=== PATIENT | female | born 1980 | race Caucasian/White ===

== ENCOUNTER 2018-09-13 16:54 | Inpatient (IN) | payer OTHER ==
[2018-09-13 17:26] VITALS: BMI 31.1
--- NOTE | 2018-09-13 20:35 | HP ---
Admission [facility] Chief Complaint: Patient with alcohol dependence is seeking admission to Rehab Allergies/Adverse Reactions: Allergies Allergy/AdvReac Type Severity Reaction Status Date / Time Fish Containing Products Allergy Hives Verified 11/27/11 13:30 [Fish Product Derivatives] peanut [Peanut] Allergy Hives Verified 11/27/11 13:30 Shellfish Allergy NOT STATED Verified 11/27/11 19:17 seafood Allergy Hives Uncoded 11/27/11 13:30 History of Present Illness: 38 years old female with a long history of alcohol dependence is seeking admission to Rehab. Patient has been in previous Rehab at [facility]. she has history of asthma, hypertension, anxiety and depression. She denies suicide attempt and suicidal ideation at this time. Patient is on Methadone 60mg tablet oral daily with [facility]. Last day medicated is today, 09/13/2018. Exam Limitations: No Limitations - Ebola screening Have you traveled outside of the country in the last 21 days: No (N) Have you had contact with anyone from an Ebola affected area: No Have you been sick,other than usual withdrawal symptoms: No Do you have a fever: No - Review of Systems Constitutional: No Symptoms Reported EENT: reports: No Symptoms Reported Respiratory: reports: No Symptoms reported Cardiac: reports: No Symptoms Reported GI: reports: No Symptoms Reported : reports: No Symptoms Reported Musculoskeletal: reports: No Symptoms Reported Integumentary: reports: No Symptoms Reported Neuro: reports: No Symptoms reported Endocrine: reports: No Symptoms Reported Hematology: reports: No Symptoms Reported Psychiatric: reports: No Sypmtoms Reported, Orientated x3 Other Systems: Reviewed and Negative Patient History - Patient Medical History Hx Anemia: No Hx Asthma: Yes (Albuterol MDI) Hx Chronic Obstructive Pulmonary Disease (COPD): No Hx Cancer: No Hx Cardiac Disorders: No Hx Congestive Heart Failure: No Hx Hypertension: Yes (Not on medication) Hx Hypercholesterolemia: No Hx Pacemaker: No HX Cerebrovascular Accident: No Hx Seizures: No Hx Dementia: No Hx Diabetes: No Hx Gastrointestinal Disorders: No Hx Liver Disease: No Hx Genitourinary Disorders: No Hx Sexually Transmitted Disorders: No Hx Renal Disease (ESRD): No Hx Thyroid Disease: No Hx Human Immunodeficiency Virus (HIV): No (Negative) Hx Hepatitis C: No Hx Depression: Yes (Trazodone) Hx Suicide Attempt: No (Denies suicidal ideation at this time) Hx Bipolar Disorder: Yes Hx Schizophrenia: No Other Medical History: Anxiety - Not on medication - Patient Surgical History Past Surgical History: Yes Hx Neurologic Surgery: No Hx Cataract Extraction: No Hx Cardiac Surgery: No Hx Lung Surgery: No Hx Breast Surgery: No Hx Breast Biopsy: No Hx Abdominal Surgery: No Hx Appendectomy: No Hx Cholecystectomy: No Hx Genitourinary Surgery: No Hx Section: Yes (C- SECTION 2010, 2011) Hx Orthopedic Surgery: No Hx Hysterectomy: No Anesthesia Reaction: No - PPD History Previous Implant?: Yes Implanted On Prior R Admission?: No PPD to be Administered?: Yes - Reproductive History Patient is a Female of Child Bearing Age (11 -55 yrs old): Yes Last Menstrual Period: 08/27/18 Patient : No - Smoking Cessation Smoking history: Current every day smoker Have you smoked in the past 12 months: Yes Aproximately how many cigarettes per day: 10 Hx Chewing Tobacco Use: No Initiated information on smoking cessation: Yes 'Breaking Loose' booklet given: 09/13/18 - Substance & Tx. History Hx Alcohol Use: Yes Hx Substance Use: Yes Substance Use Type: Alcohol Hx Substance Use Treatment: Yes Family Disease History - Family Disease History Family Disease History: Diabetes: Father, Respiratory: Mother (Asthma) Admission Physical Exam [facility] - Vital Signs Vital Signs: Vital Signs - 24 hr 09/13/18 17:24 Temperature 98.8 F Pulse Rate 89 Respiratory 18 Rate Blood Pressure 145/95 - Physical General Appearance: Yes: Within Normal Limits HEENTM: Yes: EOMI, Normal ENT Inspection, Normocephalic, Normal Voice, KIKI Respiratory: Yes: Lungs Clear, Normal Breath Sounds, No Respiratory Distress Neck: Yes: Supple Breast: Yes: Breast Exam Deferred Cardiology: Yes: Regular Rhythm, Regular Rate Abdominal: Yes: Normal Bowel Sounds Genitourinary: Yes: Within Normal Limits Back: Yes: Normal Inspection Musculoskeletal: Yes: Within Normal Limits Extremities: Yes: Within Normal Limits Neurological: Yes: Within Normal Limits Integumentary: Yes: Warm Lymphatic: Yes: Within Normal Limits - Diagnostic (1) Hypertension Current Visit: Yes Status: Chronic (2) Asthma Current Visit: Yes Status: Chronic (3) Depression Current Visit: Yes Status: Chronic Qualifiers: Major depression episode severity: unspecified (4) Anxiety Current Visit: Yes Status: Chronic (5) Alcohol dependence Current Visit: Yes Status: Chronic (6) Nicotine dependence Current Visit: Yes Status: Chronic Qualifiers: Nicotine product type: cigarettes Substance use status: uncomplicated Qualified Code(s): F17.210 - Nicotine dependence, cigarettes, uncomplicated Cleared for Admission [facility] - Detox or Rehab [facility] Level of Care: Observation Bed Claeared for Rehab Admission: Yes [facility] Breath Alcohol Content Breath Alcohol Content: 0 Urine Pregancy Test - Result Urine Test Results: Negative- NO Line Present Urine Drug Screen - Results Drug Screen Negative: No Urine Drug Screen Results: OPI-Opiates, BZO-Benzodiazepines, MTD-Methadone Inpatient Rehab Admission - Initial Determination Are CD services needed?: Yes Free of communicable disease: Yes Not in need of hospitalization: Yes - Rehab Admission Criteria Previous failed treatment: Yes Poor recovery environment: Yes Comorbidities: Yes Lacks judgement: No Patient is meeting Inpatient Rehab admission criteria:: Yes
[2018-09-13] MEDS ORDERED: guaiFENesin/D-METHORPHAN HB 10 ML UNIT-DOSE CUPS PO PRN (21:49)
[2018-09-13] MEDS ORDERED: P-EPHED 60MG/TRIPROLIDI 2.5MG TABLET PO PRN (21:49)
[2018-09-13] MEDS ORDERED: MAGNESIUM CITRATE 300 ML BOTTLE PO PRN (21:49)
[2018-09-13] MEDS ORDERED: NICOTINE POLACRILEX 2 MG GUM BUC PRN (21:49)
[2018-09-13] MEDS ORDERED: LOPERAMIDE HCL 2 MG CAPSULE PO PRN (21:49)
[2018-09-13] MEDS ORDERED: MENTHOL/PHENOL 1 EACH UD MM PRN (21:49)
[2018-09-13] MEDS: THIAMINE HCL 100 MG TABLET (FP) PO SCH (23:13)
[2018-09-13] MEDS: MAGNESIUM HYDROX 2400MG/30ML ORAL SUSPENSION 30 ML CUP PO PRN (23:18)
[2018-09-14 01:10] LABS: URINE APPEARANCE CLEAR; URINE BILIRUBIN NEGATIVE (<2.0 mg/dL); URINE COLOR YELLOW; URINE GLUCOSE (UA) NEGATIVE (NEGATIVE); URINE KETONE NEGATIVE (NEGATIVE); URINE LEUK ESTERASE TRACE (NEGATIVE); URINE NITRITE NEGATIVE (NEGATIVE); URINE PROTEIN NEGATIVE (NEGATIVE); URINE UROBILINOGEN NEGATIVE mg/dL (0.2-1.0)
[2018-09-14 02:32] LABS: EPI CELLS MODERATE /HPF (FEW); URINE MUCUS RARE
[2018-09-14] MEDS ORDERED: METHADONE HCL 10 MG TABLET PO SCH (08:00)
[2018-09-14] MEDS ORDERED: METHADONE HCL 10 MG TABLET ONE (08:48)
[2018-09-14] MEDS ORDERED: METHADONE HCL 40 MG DISPERSABLE TABLET ONE (08:49)
[2018-09-14] MEDS: METHADONE 40 MG, METHADONE 20 MG PO SCH (08:54)
[2018-09-14] MEDS: NICOTINE 14 MG/24 HOURS TOPICAL PATCH TD SCH (09:01)
[2018-09-14] MEDS: PRENATAL VITAMINS W/ FOLIC ACID TABLET (FP) PO SCH (09:01)
[2018-09-14 10:32] LABS: HEMATOCRIT 40.8 % (32.4-45.2); HEMOGLOBIN 12.9 GM/dL (10.7-15.3); MCH 28.5 pg (25.7-33.7); MCHC 31.7 g/dl (32.0-36.0); MEAN CELL VOLUME 89.7 fl (80-96); MEAN PLT VOLUME 9.8 fl (7.5-11.1); PLATELET COUNT 199 K/MM3 (134-434); RBC 4.54 M/mm3 (3.60-5.2); RDW 15.9 % (11.6-15.6); WHITE BLOOD COUNT 8.1 K/mm3 (4.0-10.0)
[2018-09-14 10:55] LABS: ALBUMIN 3.2 g/dl (3.4-5.0); ALK PHOS 82 U/L (45-117); ANION GAP 5 MMOL/L (8-16); BILIRUBIN,TOTAL 0.2 mg/dL (0.2-1); BLOOD UREA NITROGEN 16 mg/dL (7-18); CALCIUM 8.9 mg/dL (8.5-10.1); CHLORIDE 109 mmol/L (98-107); CO2 26 mmol/L (21-32); CREATININE 0.7 mg/dL (0.55-1.3); GLUCOSE,RANDOM 71 mg/dL (74-106); POTASSIUM 4.4 mmol/L (3.5-5.1); SGOT/AST 26 U/L (15-37); SGPT/ALT 21 U/L (13-61); SODIUM 140 mmol/L (136-145); TOT PROT 6.6 g/dl (6.4-8.2)
--- NOTE | 2018-09-14 11:48 | EKG ---
Test Reason : Blood Pressure : / mmHG Vent. Rate : 074 BPM Atrial Rate : 074 BPM P-R Int : 164 ms QRS Dur : 088 ms QT Int : 406 ms P-R-T Axes : 065 062 055 degrees QTc Int : 450 ms NORMAL SINUS RHYTHM NORMAL ECG NO PREVIOUS ECGS AVAILABLE Confirmed by SALVADOR KIRAN MD ([id number]) on 09/14/2018 11:47:35 AM Referred By: Confirmed By:SALVADOR KIRAN MD
[2018-09-14] MEDS: THIAMINE HCL 100 MG TABLET (FP) PO SCH (21:21)
[2018-09-14] MEDS: MELATONIN 5 MG TABLETS PO PRN (21:22)
[2018-09-15] MEDS ORDERED: METHADONE HCL 10 MG TABLET ONE (06:12)
[2018-09-15] MEDS ORDERED: METHADONE HCL 40 MG DISPERSABLE TABLET ONE (06:13)
[2018-09-15] MEDS: METHADONE 40 MG, METHADONE 20 MG PO SCH (06:13)
[2018-09-15] MEDS: IBUPROFEN 400 MG TABLET (FP) PO PRN ×2 (06:15→21:22)
[2018-09-15] MEDS: NICOTINE 14 MG/24 HOURS TOPICAL PATCH TD SCH (09:29)
[2018-09-15] MEDS: ACETAMINOPHEN 325 MG TABLET (FP) PO PRN (09:29)
[2018-09-15] MEDS: PRENATAL VITAMINS W/ FOLIC ACID TABLET (FP) PO SCH (09:29)
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
[2018-09-15] MEDS: hydrOXYzine PAMOATE 50 MG CAPSULE (FP) PO PRN ×2 (10:28→21:19)
[2018-09-15] MEDS ORDERED: cloNIDine HCL 0.1 MG TABLET PO ONE (10:57)
--- NOTE | 2018-09-15 11:05 | PN ---
[facility] Progress Note Note: PT C/O DECREASED APPETITE, HX ANEMIA AND ON FEOSOL 325 MG PO TID AND HAS HEAVY PERIODS. PT WANTS IT ONCE A DAY WHILE IN REHAB. ALSO STATES SHE IS ON COLACE AND SENNA AND REQUESTING COLACE TO BE REORDERED. PT ALSO STATES ELEVATE BP FOR PAST MONTH WHENEVER SHE WENT TO HER CLINIC AND STATES HER PMD DID NOT GIVE HER ANY MEDICATION. Vital Signs - 24 hr 09/14/18 09/15/18 09/15/18 14:41 03:30 07:21 Temperature 97.9 F Pulse Rate 71 80 Respiratory 18 18 Rate Blood Pressure 131/83 144/97 09/15/18 09/15/18 09:36 09:37 Temperature Pulse Rate 80 83 Respiratory Rate Blood Pressure 146/84 155/82 Laboratory Tests 09/14/18 09/14/18 09/14/18 00:05 07:00 07:00 WBC 8.1 RBC 4.54 Hgb 12.9 Hct 40.8 MCV 89.7 MCH 28.5 MCHC 31.7 L RDW 15.9 H Plt Count 199 MPV 9.8 Sodium 140 Potassium 4.4 Chloride 109 H Carbon Dioxide 26 Anion Gap 5 L BUN 16 Creatinine 0.7 Creat Clearance w eGFR > 60 Random Glucose 71 L Calcium 8.9 Total Bilirubin 0.2 AST 26 ALT 21 Alkaline Phosphatase 82 Total Protein 6.6 Albumin 3.2 L Urine Color Yellow Urine Appearance Clear Urine pH 5.0 Ur Specific [place] 1.024 Urine Protein Negative Urine Glucose (UA) Negative Urine Ketones Negative Urine Blood Negative Urine Nitrite Negative Urine Bilirubin Negative Urine Urobilinogen Negative Ur Leukocyte Esterase Trace Urine WBC (Auto) 10 Urine RBC (Auto) 2 Ur Epithelial Cells Moderate Urine Mucus Rare RPR Titer HIV 1&2 Antibody Screen HIV P24 Antigen 09/14/18 09/14/18 07:00 07:00 WBC RBC Hgb Hct MCV MCH MCHC RDW Plt Count MPV Sodium Potassium Chloride Carbon Dioxide Anion Gap BUN Creatinine Creat Clearance w eGFR Random Glucose Calcium Total Bilirubin AST ALT Alkaline Phosphatase Total Protein Albumin Urine Color Urine Appearance Urine pH Ur Specific [place] Urine Protein Urine Glucose (UA) Urine Ketones Urine Blood Urine Nitrite Urine Bilirubin Urine Urobilinogen Ur Leukocyte Esterase Urine WBC (Auto) Urine RBC (Auto) Ur Epithelial Cells Urine Mucus RPR Titer Nonreactive HIV 1&2 Antibody Screen Negative HIV P24 Antigen Negative LABS NOTED. HGB/HCT WNL PT INFORMED BUT STILL WANTS HER FEOSOL BUT ONCE DAILY. PT WAS SEEN BY THE DIETITIAN TODAY CLONIDINE 0.1 MG PO BID FOLLOW UP WITH PMD AFTER REHAB
[2018-09-15] MEDS: FERROUS SO4 325 MG TABLET (FP) PO SCH (12:00)
[2018-09-15] MEDS: HYDROCORTISONE 1% TOPICAL CREAM 30 GM TUBE TP SCH ×2 (12:00→21:24)
[2018-09-15] MEDS: THIAMINE HCL 100 MG TABLET (FP) PO SCH (21:19)
[2018-09-15] MEDS: MELATONIN 5 MG TABLETS PO PRN (21:19)
[2018-09-15] MEDS: DOCUSATE SODIUM 100 MG CAPSULE (FP) PO SCH (21:22)
[2018-09-15] MEDS: MIRTAZAPINE 30 MG TABLET (FP) PO SCH (21:23)
[2018-09-15] MEDS: traZODone HCL 50 MG TABLET (FP) PO SCH (21:23)
[2018-09-15] MEDS: QUEtiapine FUMARATE 100 MG TABLET (FP) PO SCH (21:23)
[2018-09-15] MEDS: cloNIDine HCL 0.1 MG TABLET PO SCH (21:23)
[2018-09-16] MEDS ORDERED: METHADONE HCL 10 MG TABLET ONE (02:43)
[2018-09-16] MEDS ORDERED: METHADONE HCL 40 MG DISPERSABLE TABLET ONE (02:44)
[2018-09-16] MEDS: METHADONE 40 MG, METHADONE 20 MG PO SCH (06:36)
[2018-09-16] MEDS: IBUPROFEN 400 MG TABLET (FP) PO PRN ×2 (06:37→18:34)
[2018-09-16] MEDS: cloNIDine HCL 0.1 MG TABLET PO SCH ×2 (10:04→21:13)
[2018-09-16] MEDS: PRENATAL VITAMINS W/ FOLIC ACID TABLET (FP) PO SCH (10:05)
[2018-09-16] MEDS: HYDROCORTISONE 1% TOPICAL CREAM 30 GM TUBE TP SCH ×2 (10:05→21:14)
[2018-09-16] MEDS: NICOTINE 14 MG/24 HOURS TOPICAL PATCH TD SCH (10:05)
[2018-09-16] MEDS: FERROUS SO4 325 MG TABLET (FP) PO SCH (10:05)
[2018-09-16] MEDS: ACETAMINOPHEN 325 MG TABLET (FP) PO PRN (12:09)
[2018-09-16] MEDS: hydrOXYzine PAMOATE 50 MG CAPSULE (FP) PO PRN ×2 (12:11→18:36)
[2018-09-16] MEDS ORDERED: PT OWN MED DRAWER 7, Y5N ONE (20:35)
[2018-09-16] MEDS: DOCUSATE SODIUM 100 MG CAPSULE (FP) PO SCH (21:13)
[2018-09-16] MEDS: traZODone HCL 50 MG TABLET (FP) PO SCH (21:13)
[2018-09-16] MEDS: MIRTAZAPINE 30 MG TABLET (FP) PO SCH (21:13)
[2018-09-16] MEDS: QUEtiapine FUMARATE 100 MG TABLET (FP) PO SCH (21:13)
[2018-09-16] MEDS: THIAMINE HCL 100 MG TABLET (FP) PO SCH (21:15)
[2018-09-17] MEDS ORDERED: METHADONE HCL 40 MG DISPERSABLE TABLET ONE (03:08)
[2018-09-17] MEDS ORDERED: METHADONE HCL 10 MG TABLET ONE (03:08)
[2018-09-17] MEDS: METHADONE 40 MG, METHADONE 20 MG PO SCH (06:50)
[2018-09-17] MEDS: IBUPROFEN 400 MG TABLET (FP) PO PRN (06:51)
[2018-09-17] MEDS: cloNIDine HCL 0.1 MG TABLET PO SCH ×2 (10:20→21:40)
[2018-09-17] MEDS: NICOTINE 14 MG/24 HOURS TOPICAL PATCH TD SCH (10:20)
[2018-09-17] MEDS: PRENATAL VITAMINS W/ FOLIC ACID TABLET (FP) PO SCH (10:20)
[2018-09-17] MEDS: FERROUS SO4 325 MG TABLET (FP) PO SCH (10:20)
[2018-09-17] MEDS: HYDROCORTISONE 1% TOPICAL CREAM 30 GM TUBE TP SCH ×2 (10:20→21:40)
[2018-09-17] MEDS: ACETAMINOPHEN 325 MG TABLET (FP) PO PRN ×2 (10:22→23:37)
[2018-09-17] MEDS ORDERED: PT OWN MED DRAWER 7, Y5N ONE (10:46)
[2018-09-17] MEDS: hydrOXYzine PAMOATE 50 MG CAPSULE (FP) PO PRN (15:41)
[2018-09-17] MEDS: THIAMINE HCL 100 MG TABLET (FP) PO SCH (21:40)
[2018-09-17] MEDS: DOCUSATE SODIUM 100 MG CAPSULE (FP) PO SCH (21:40)
[2018-09-17] MEDS: MIRTAZAPINE 30 MG TABLET (FP) PO SCH (21:40)
[2018-09-17] MEDS: QUEtiapine FUMARATE 100 MG TABLET (FP) PO SCH (21:40)
[2018-09-17] MEDS: traZODone HCL 50 MG TABLET (FP) PO SCH (21:40)
[2018-09-18] MEDS ORDERED: METHADONE HCL 10 MG TABLET ONE (03:10)
[2018-09-18] MEDS ORDERED: METHADONE HCL 40 MG DISPERSABLE TABLET ONE (03:10)
[2018-09-18] MEDS: IBUPROFEN 400 MG TABLET (FP) PO PRN ×2 (06:15→13:42)
[2018-09-18] MEDS: METHADONE 40 MG, METHADONE 20 MG PO SCH (06:15)
[2018-09-18] MEDS: NICOTINE 14 MG/24 HOURS TOPICAL PATCH TD SCH (10:13)
[2018-09-18] MEDS: PRENATAL VITAMINS W/ FOLIC ACID TABLET (FP) PO SCH (10:14)
[2018-09-18] MEDS: HYDROCORTISONE 1% TOPICAL CREAM 30 GM TUBE TP SCH ×2 (10:14→21:47)
[2018-09-18] MEDS: FERROUS SO4 325 MG TABLET (FP) PO SCH (10:14)
[2018-09-18] MEDS: cloNIDine HCL 0.1 MG TABLET PO SCH ×2 (10:15→21:45)
[2018-09-18] MEDS: ACETAMINOPHEN 325 MG TABLET (FP) PO PRN (10:16)
[2018-09-18] MEDS: hydrOXYzine PAMOATE 50 MG CAPSULE (FP) PO PRN (10:23)
[2018-09-18] MEDS: THIAMINE HCL 100 MG TABLET (FP) PO SCH (21:44)
[2018-09-18] MEDS: QUEtiapine FUMARATE 100 MG TABLET (FP) PO SCH (21:45)
[2018-09-18] MEDS: traZODone HCL 50 MG TABLET (FP) PO SCH (21:45)
[2018-09-18] MEDS: MIRTAZAPINE 30 MG TABLET (FP) PO SCH (21:45)
[2018-09-18] MEDS: DOCUSATE SODIUM 100 MG CAPSULE (FP) PO SCH (21:45)
[2018-09-19] MEDS ORDERED: METHADONE HCL 10 MG TABLET ONE (05:50)
[2018-09-19] MEDS ORDERED: METHADONE HCL 40 MG DISPERSABLE TABLET ONE (05:50)
[2018-09-19] MEDS: METHADONE 40 MG, METHADONE 20 MG PO SCH (06:10)
[2018-09-19] MEDS: IBUPROFEN 600 MG TABLET (FP) PO PRN ×2 (06:10→14:51)
[2018-09-19] MEDS: MAGNESIUM HYDROX 2400MG/30ML ORAL SUSPENSION 30 ML CUP PO PRN (07:56)
[2018-09-19] MEDS: PRENATAL VITAMINS W/ FOLIC ACID TABLET (FP) PO SCH (10:34)
[2018-09-19] MEDS: NICOTINE 14 MG/24 HOURS TOPICAL PATCH TD SCH (10:34)
[2018-09-19] MEDS: FERROUS SO4 325 MG TABLET (FP) PO SCH (10:34)
[2018-09-19] MEDS: cloNIDine HCL 0.1 MG TABLET PO SCH ×2 (10:34→21:35)
[2018-09-19] MEDS: HYDROCORTISONE 1% TOPICAL CREAM 30 GM TUBE TP SCH ×2 (10:35→21:36)
[2018-09-19] MEDS: DOCUSATE SODIUM 100 MG CAPSULE (FP) PO SCH (21:35)
[2018-09-19] MEDS: traZODone HCL 50 MG TABLET (FP) PO SCH (21:35)
[2018-09-19] MEDS: MIRTAZAPINE 30 MG TABLET (FP) PO SCH (21:35)
[2018-09-19] MEDS: THIAMINE HCL 100 MG TABLET (FP) PO SCH (21:35)
[2018-09-19] MEDS: QUEtiapine FUMARATE 100 MG TABLET (FP) PO SCH (21:35)
[2018-09-19] MEDS: CYCLOBENZAPRINE HCL 10 MG TABLET (FP) PO PRN (21:35)
[2018-09-20] MEDS ORDERED: METHADONE HCL 40 MG DISPERSABLE TABLET ONE (03:13)
[2018-09-20] MEDS ORDERED: METHADONE HCL 10 MG TABLET ONE (03:13)
[2018-09-20] MEDS: METHADONE 40 MG, METHADONE 20 MG PO SCH (06:09)
[2018-09-20] MEDS ORDERED: SENNOSIDES 8.6MG TABLET (FP) PO SCH (10:00)
[2018-09-20] MEDS: SENNOSIDES 8.6MG TABLET (FP) PO SCH (10:23)
[2018-09-20] MEDS: NICOTINE 14 MG/24 HOURS TOPICAL PATCH TD SCH (10:23)
[2018-09-20] MEDS: FERROUS SO4 325 MG TABLET (FP) PO SCH (10:24)
[2018-09-20] MEDS: PRENATAL VITAMINS W/ FOLIC ACID TABLET (FP) PO SCH (10:24)
[2018-09-20] MEDS: HYDROCORTISONE 1% TOPICAL CREAM 30 GM TUBE TP SCH ×2 (10:24→21:30)
[2018-09-20] MEDS: cloNIDine HCL 0.1 MG TABLET PO SCH ×2 (10:24→21:29)
[2018-09-20] MEDS: CYCLOBENZAPRINE HCL 10 MG TABLET (FP) PO PRN ×2 (14:03→21:29)
[2018-09-20] MEDS: QUEtiapine FUMARATE 100 MG TABLET (FP) PO SCH (21:29)
[2018-09-20] MEDS: MIRTAZAPINE 30 MG TABLET (FP) PO SCH (21:29)
[2018-09-20] MEDS: DOCUSATE SODIUM 100 MG CAPSULE (FP) PO SCH (21:29)
[2018-09-20] MEDS: traZODone HCL 50 MG TABLET (FP) PO SCH (21:29)
[2018-09-20] MEDS: THIAMINE HCL 100 MG TABLET (FP) PO SCH (21:29)
[2018-09-21] MEDS ORDERED: METHADONE HCL 10 MG TABLET ONE (03:20)
[2018-09-21] MEDS ORDERED: METHADONE HCL 40 MG DISPERSABLE TABLET ONE (03:21)
[2018-09-21] MEDS: METHADONE 40 MG, METHADONE 20 MG PO SCH (06:11)
[2018-09-21] MEDS: IBUPROFEN 600 MG TABLET (FP) PO PRN (09:57)
[2018-09-21] MEDS: cloNIDine HCL 0.1 MG TABLET PO SCH ×2 (09:58→21:49)
[2018-09-21] MEDS: SENNOSIDES 8.6MG TABLET (FP) PO SCH (09:58)
[2018-09-21] MEDS: PRENATAL VITAMINS W/ FOLIC ACID TABLET (FP) PO SCH (09:58)
[2018-09-21] MEDS: FERROUS SO4 325 MG TABLET (FP) PO SCH (09:58)
[2018-09-21] MEDS: NICOTINE 14 MG/24 HOURS TOPICAL PATCH TD SCH (09:58)
[2018-09-21] MEDS: HYDROCORTISONE 1% TOPICAL CREAM 30 GM TUBE TP SCH ×2 (10:00→21:49)
[2018-09-21] MEDS: CYCLOBENZAPRINE HCL 10 MG TABLET (FP) PO PRN (21:49)
[2018-09-21] MEDS: traZODone HCL 50 MG TABLET (FP) PO SCH (21:49)
[2018-09-21] MEDS: QUEtiapine FUMARATE 100 MG TABLET (FP) PO SCH (21:49)
[2018-09-21] MEDS: THIAMINE HCL 100 MG TABLET (FP) PO SCH (21:49)
[2018-09-21] MEDS: DOCUSATE SODIUM 100 MG CAPSULE (FP) PO SCH (21:49)
[2018-09-21] MEDS: hydrOXYzine PAMOATE 50 MG CAPSULE (FP) PO PRN (21:49)
[2018-09-21] MEDS: MIRTAZAPINE 30 MG TABLET (FP) PO SCH (21:49)
[2018-09-22] MEDS ORDERED: METHADONE HCL 40 MG DISPERSABLE TABLET ONE (06:23)
[2018-09-22] MEDS ORDERED: METHADONE HCL 10 MG TABLET ONE (06:23)
[2018-09-22] MEDS: METHADONE 40 MG, METHADONE 20 MG PO SCH (06:32)
[2018-09-22] MEDS: IBUPROFEN 600 MG TABLET (FP) PO PRN ×2 (06:34→20:55)
[2018-09-22] MEDS: cloNIDine HCL 0.1 MG TABLET PO SCH ×2 (10:09→21:55)
[2018-09-22] MEDS: HYDROCORTISONE 1% TOPICAL CREAM 30 GM TUBE TP SCH ×2 (10:09→22:00)
[2018-09-22] MEDS: FERROUS SO4 325 MG TABLET (FP) PO SCH (10:09)
[2018-09-22] MEDS: PRENATAL VITAMINS W/ FOLIC ACID TABLET (FP) PO SCH (10:09)
[2018-09-22] MEDS: NICOTINE 14 MG/24 HOURS TOPICAL PATCH TD SCH (10:10)
[2018-09-22] MEDS: SENNOSIDES 8.6MG TABLET (FP) PO SCH (10:10)
--- NOTE | 2018-09-22 12:28 | PN ---
[facility] Progress Note Note: Called by nursing staff on behalf of patient requesting increase in seroquel dosage because of insomnia. Patient has history of Bipolar Disorder and she is currently on Seroquel 100 mg po HS, Remeron 30 mg po HS and Trazadone 50 mg po HS. Will increase Seroquel to 200 mg po HS
[2018-09-22] MEDS: MAG HYDROX/AL HYDROX/SIMETH 30 ML UNIT-DOSE CUP PO PRN ×2 (12:57→20:55)
[2018-09-22] MEDS ORDERED: PT OWN MED DRAWER 7, Y5N ONE (19:44)
[2018-09-22] MEDS: THIAMINE HCL 100 MG TABLET (FP) PO SCH (21:55)
[2018-09-22] MEDS: DOCUSATE SODIUM 100 MG CAPSULE (FP) PO SCH (21:55)
[2018-09-22] MEDS: MIRTAZAPINE 30 MG TABLET (FP) PO SCH (21:55)
[2018-09-22] MEDS: traZODone HCL 100 MG TABLET (FP) PO SCH (21:57)
[2018-09-22] MEDS: QUEtiapine FUMARATE 200 MG TABLET PO SCH (21:57)
[2018-09-23] MEDS ORDERED: METHADONE HCL 10 MG TABLET ONE (06:00)
[2018-09-23] MEDS ORDERED: METHADONE HCL 40 MG DISPERSABLE TABLET ONE (06:01)
[2018-09-23] MEDS: ACETAMINOPHEN 325 MG TABLET (FP) PO PRN (06:47)
[2018-09-23] MEDS: METHADONE 40 MG, METHADONE 20 MG PO SCH (06:47)
[2018-09-23] MEDS: NICOTINE 14 MG/24 HOURS TOPICAL PATCH TD SCH (10:08)
[2018-09-23] MEDS: cloNIDine HCL 0.1 MG TABLET PO SCH ×2 (10:08→21:36)
[2018-09-23] MEDS: FERROUS SO4 325 MG TABLET (FP) PO SCH (10:09)
[2018-09-23] MEDS: SENNOSIDES 8.6MG TABLET (FP) PO SCH (10:09)
[2018-09-23] MEDS: PRENATAL VITAMINS W/ FOLIC ACID TABLET (FP) PO SCH (10:09)
[2018-09-23] MEDS: hydrOXYzine PAMOATE 50 MG CAPSULE (FP) PO PRN (10:11)
[2018-09-23] MEDS: HYDROCORTISONE 1% TOPICAL CREAM 30 GM TUBE TP SCH ×2 (10:12→21:37)
[2018-09-23] MEDS: RANITIDINE HCL 150 MG TABLET (FP) PO SCH ×2 (13:10→21:36)
[2018-09-23] MEDS: DOCUSATE SODIUM 100 MG CAPSULE (FP) PO SCH (21:36)
[2018-09-23] MEDS: MIRTAZAPINE 30 MG TABLET (FP) PO SCH (21:36)
[2018-09-23] MEDS: traZODone HCL 100 MG TABLET (FP) PO SCH (21:36)
[2018-09-23] MEDS: THIAMINE HCL 100 MG TABLET (FP) PO SCH (21:36)
[2018-09-23] MEDS: CYCLOBENZAPRINE HCL 10 MG TABLET (FP) PO PRN (21:36)
[2018-09-23] MEDS: QUEtiapine FUMARATE 200 MG TABLET PO SCH (21:36)
[2018-09-23] MEDS: MELATONIN 5 MG TABLETS PO PRN (21:37)
[2018-09-24] MEDS ORDERED: METHADONE HCL 40 MG DISPERSABLE TABLET ONE (06:01)
[2018-09-24] MEDS ORDERED: METHADONE HCL 10 MG TABLET ONE (06:01)
[2018-09-24] MEDS: METHADONE 40 MG, METHADONE 20 MG PO SCH (07:05)
[2018-09-24] MEDS: NICOTINE 14 MG/24 HOURS TOPICAL PATCH TD SCH (10:16)
[2018-09-24] MEDS: PRENATAL VITAMINS W/ FOLIC ACID TABLET (FP) PO SCH (10:17)
[2018-09-24] MEDS: cloNIDine HCL 0.1 MG TABLET PO SCH ×2 (10:17→21:54)
[2018-09-24] MEDS: RANITIDINE HCL 150 MG TABLET (FP) PO SCH ×2 (10:17→21:54)
[2018-09-24] MEDS: HYDROCORTISONE 1% TOPICAL CREAM 30 GM TUBE TP SCH ×2 (10:17→21:56)
[2018-09-24] MEDS: SENNOSIDES 8.6MG TABLET (FP) PO SCH (10:17)
[2018-09-24] MEDS: FERROUS SO4 325 MG TABLET (FP) PO SCH (10:17)
[2018-09-24] MEDS: CYCLOBENZAPRINE HCL 10 MG TABLET (FP) PO PRN (21:54)
[2018-09-24] MEDS: QUEtiapine FUMARATE 200 MG TABLET PO SCH (21:54)
[2018-09-24] MEDS: DOCUSATE SODIUM 100 MG CAPSULE (FP) PO SCH (21:54)
[2018-09-24] MEDS: traZODone HCL 100 MG TABLET (FP) PO SCH (21:54)
[2018-09-24] MEDS: MIRTAZAPINE 30 MG TABLET (FP) PO SCH (21:54)
[2018-09-24] MEDS: THIAMINE HCL 100 MG TABLET (FP) PO SCH (21:54)
[2018-09-24] MEDS: MAGNESIUM HYDROX 2400MG/30ML ORAL SUSPENSION 30 ML CUP PO PRN (21:56)
[2018-09-25] MEDS ORDERED: METHADONE HCL 40 MG DISPERSABLE TABLET ONE (05:58)
[2018-09-25] MEDS ORDERED: METHADONE HCL 10 MG TABLET ONE (05:58)
[2018-09-25] MEDS: METHADONE 40 MG, METHADONE 20 MG PO SCH (06:17)
[2018-09-25] MEDS: FERROUS SO4 325 MG TABLET (FP) PO SCH (10:36)
[2018-09-25] MEDS: NICOTINE 14 MG/24 HOURS TOPICAL PATCH TD SCH (10:36)
[2018-09-25] MEDS: RANITIDINE HCL 150 MG TABLET (FP) PO SCH ×2 (10:36→21:34)
[2018-09-25] MEDS: HYDROCORTISONE 1% TOPICAL CREAM 30 GM TUBE TP SCH ×2 (10:36→21:35)
[2018-09-25] MEDS: SENNOSIDES 8.6MG TABLET (FP) PO SCH (10:36)
[2018-09-25] MEDS: PRENATAL VITAMINS W/ FOLIC ACID TABLET (FP) PO SCH (10:36)
[2018-09-25] MEDS: cloNIDine HCL 0.1 MG TABLET PO SCH ×2 (10:36→21:35)
[2018-09-25] MEDS: traZODone HCL 100 MG TABLET (FP) PO SCH (21:34)
[2018-09-25] MEDS: QUEtiapine FUMARATE 200 MG TABLET PO SCH (21:34)
[2018-09-25] MEDS: THIAMINE HCL 100 MG TABLET (FP) PO SCH (21:34)
[2018-09-25] MEDS: CYCLOBENZAPRINE HCL 10 MG TABLET (FP) PO PRN (21:34)
[2018-09-25] MEDS: DOCUSATE SODIUM 100 MG CAPSULE (FP) PO SCH (21:34)
[2018-09-25] MEDS: MIRTAZAPINE 30 MG TABLET (FP) PO SCH (21:34)
[2018-09-26] MEDS ORDERED: METHADONE HCL 10 MG TABLET ONE (02:52)
[2018-09-26] MEDS ORDERED: METHADONE HCL 40 MG DISPERSABLE TABLET ONE (02:53)
[2018-09-26] MEDS: METHADONE 40 MG, METHADONE 20 MG PO SCH (06:14)
[2018-09-26] MEDS: PRENATAL VITAMINS W/ FOLIC ACID TABLET (FP) PO SCH (11:19)
[2018-09-26] MEDS: cloNIDine HCL 0.1 MG TABLET PO SCH ×2 (11:19→21:41)
[2018-09-26] MEDS: FERROUS SO4 325 MG TABLET (FP) PO SCH (11:19)
[2018-09-26] MEDS: NICOTINE 14 MG/24 HOURS TOPICAL PATCH TD SCH (11:19)
[2018-09-26] MEDS: RANITIDINE HCL 150 MG TABLET (FP) PO SCH ×2 (11:20→21:38)
[2018-09-26] MEDS: SENNOSIDES 8.6MG TABLET (FP) PO SCH (11:20)
[2018-09-26] MEDS: HYDROCORTISONE 1% TOPICAL CREAM 30 GM TUBE TP SCH ×2 (11:21→21:53)
[2018-09-26] MEDS: hydrOXYzine PAMOATE 50 MG CAPSULE (FP) PO PRN (12:49)
[2018-09-26] MEDS: THIAMINE HCL 100 MG TABLET (FP) PO SCH (21:37)
[2018-09-26] MEDS: DOCUSATE SODIUM 100 MG CAPSULE (FP) PO SCH (21:37)
[2018-09-26] MEDS: traZODone HCL 100 MG TABLET (FP) PO SCH (21:38)
[2018-09-26] MEDS: QUEtiapine FUMARATE 200 MG TABLET PO SCH (21:38)
[2018-09-26] MEDS: MAG HYDROX/AL HYDROX/SIMETH 30 ML UNIT-DOSE CUP PO PRN (21:39)
[2018-09-26] MEDS: CYCLOBENZAPRINE HCL 10 MG TABLET (FP) PO PRN (21:40)
[2018-09-26] MEDS: MIRTAZAPINE 30 MG TABLET (FP) PO SCH (21:53)
[2018-09-27] MEDS ORDERED: METHADONE HCL 10 MG TABLET ONE (04:56)
[2018-09-27] MEDS ORDERED: METHADONE HCL 40 MG DISPERSABLE TABLET ONE (04:57)
[2018-09-27] MEDS: METHADONE 40 MG, METHADONE 20 MG PO SCH (06:35)
[2018-09-27 07:05] VITALS: TEMP 97.7
[2018-09-27] MEDS: cloNIDine HCL 0.1 MG TABLET PO SCH (09:21)
[2018-09-27] MEDS: HYDROCORTISONE 1% TOPICAL CREAM 30 GM TUBE TP SCH (09:21)
[2018-09-27] MEDS: FERROUS SO4 325 MG TABLET (FP) PO SCH (09:21)
[2018-09-27] MEDS: PRENATAL VITAMINS W/ FOLIC ACID TABLET (FP) PO SCH (09:22)
[2018-09-27] MEDS: SENNOSIDES 8.6MG TABLET (FP) PO SCH (09:22)
[2018-09-27] MEDS: NICOTINE 14 MG/24 HOURS TOPICAL PATCH TD SCH (09:22)
[2018-09-27] MEDS: RANITIDINE HCL 150 MG TABLET (FP) PO SCH (09:22)
[2018-09-27 10:48] VITALS: BP 127/88; PULSE 90
--- NOTE | 2018-09-27 13:46 | PN ---
Psychiatric Progress Note Vital Signs: Vital Signs Period Temp Pulse Resp BP Sys/Dixon Pulse Ox Last 24 Hr 97.7 F 78-90 18-18 127-152/88-98 Date of Session: 09/27/18 Chief Complaint:: Discharge visit Current Side Effect: No Lab tests ordered: No Lab tests reviewed: Yes Total face to face time:: 30 Mental Status Exam - Mental Status Exam Alert and Oriented to: Time, Place, Person Cognitive Function: Grossly Intact Patient Appearance: Well Groomed Mood: Hopeful, Euthymic Affect: Mood Congruent Patient Behavior: Cooperative Speech Pattern: Appropriate Voice Loudness: Normal Thought Process: Goal Oriented Thought Disorder: Not Present Hallucinations: Denies Suicidal Ideation: Denies Homicidal Ideation: Denies Insight/Judgement: Fair Sleep: Fair Appetite: Fair Muscle strength/Tone: Normal Gait/Station: Normal Psychiatric Treatment Plan - Problem List (1) Anemia Qualifiers: Anemia type: iron deficiency (4) Hypertension Qualifiers: Hypertension type: essential hypertension Qualified Code(s): I10 - Essential (primary) hypertension (5) Nicotine dependence Qualifiers: Nicotine product type: cigarettes Substance use status: uncomplicated Qualified Code(s): F17.210 - Nicotine dependence, cigarettes, uncomplicated
== END 2018-09-27 09:42 | disposition home or self-care (01) | DRG 772 ==
LOC: YASAS 16:54 → Y3E 20:25
PROVIDERS: ADMIT Psychiatry & Neurology Psychiatry; ATTEND Psychiatry & Neurology Psychiatry
PROC: HZ42ZZZ Group Counseling for Substance Abuse Treatment, Cognitive-Behavioral (ICD-10-PCS; principal; 2018-09-13)
DX: F11.20 Opioid dependence, uncomplicated (principal); F10.20 Alcohol dependence, uncomplicated; F16.20 Hallucinogen dependence, uncomplicated; F17.210 Nicotine dependence, cigarettes, uncomplicated; F39 Unspecified mood [affective] disorder; F31.9 Bipolar disorder, unspecified; F19.24 Other psychoactive substance dependence with psychoactive substance-induced mood disorder; F32.9 Major depressive disorder, single episode, unspecified; F41.9 Anxiety disorder, unspecified; I10 Essential (primary) hypertension; D50.9 Iron deficiency anemia, unspecified; J45.909 Unspecified asthma, uncomplicated
CPT/HCPCS: 36415; 80053; 81003; 81015; 85027; 86593; 87389; 93005; 93010; J0735

== ENCOUNTER 2021-12-30 18:17 | Inpatient (IN) | payer OTHER ==
[2021-12-30] MEDS ORDERED: MAGNESIUM HYDROX 2400MG/30ML ORAL SUSPENSION 30 ML CUP PO PRN (21:23)
[2021-12-30] MEDS ORDERED: MAG HYDROX/AL HYDROX/SIMETH 30 ML UNIT-DOSE CUP PO PRN (21:23)
[2021-12-30] MEDS ORDERED: ONDANSETRON *ODT* 4 MG TABLET SL PRN (21:23)
[2021-12-30] MEDS ORDERED: MAGNESIUM CITRATE 300 ML BOTTLE PO PRN (21:23)
[2021-12-30] MEDS ORDERED: BISMUTH SUBSALICYLATE 524 MG/30 ML PO PRN (21:23)
[2021-12-30] MEDS ORDERED: methaDONE HCL 10 MG TABLET (FOR DETOX USE ONLY) PO ONE (21:23)
[2021-12-30] MEDS ORDERED: MENTHOL/PHENOL 1 EACH UD MM PRN (21:23)
[2021-12-30] MEDS ORDERED: ACETAMINOPHEN 325 MG TABLET (FP) PO PRN ×2 (21:23)
[2021-12-30] MEDS ORDERED: NICOTINE 10 MG CARTRIDGE (INHALER) IH PRN (21:23)
[2021-12-30 22:35] VITALS: BMI 28.9
[2021-12-30] MEDS ORDERED: methaDONE HCL 10 MG TABLET (FOR DETOX USE ONLY) ONE (23:45)
[2021-12-30] MEDS: MELATONIN 5 MG TABLETS PO SCH (23:46)
[2021-12-30] MEDS: THIAMINE HCL 100 MG TABLET (FP) PO SCH (23:47)
[2021-12-31] MEDS: METHOCARBAMOL 500 MG TABLET PO PRN ×3 (00:58→19:17)
[2021-12-31] MEDS: cloNIDine HCL 0.1 MG TABLET PO PRN ×2 (00:58→19:17)
[2021-12-31] MEDS ORDERED: methaDONE HCL 10 MG TABLET (FOR DETOX USE ONLY) ONE (09:10)
[2021-12-31 10:25] LABS: HEMATOCRIT 30.3 % (32.4-45.2); HEMOGLOBIN 8.9 GM/dL (10.7-15.3); MCHC 29.3 g/dl (32.0-36.0); MEAN CELL VOLUME 65.1 fl (80-96); MEAN PLT VOLUME 9.5 fl (7.5-11.1); PLATELET COUNT 237 10^3/uL (134-434); RBC 4.65 M/mm3 (3.60-5.2); RDW 18.6 % (11.6-15.6); WHITE BLOOD COUNT 5.4 K/mm3 (4.0-10.0)
[2021-12-31] MEDS: PRENATAL VITAMINS W/ FOLIC ACID TABLET (FP) PO SCH (10:25)
[2021-12-31 10:28] LABS: ALBUMIN 3.3 g/dl (3.4-5.0); BLOOD UREA NITROGEN 8.4 mg/dL (7-18); CALCIUM 9.1 mg/dL (8.5-10.1); MCH 19.1 pg (25.7-33.7)
[2021-12-31] MEDS: NICOTINE 14 MG/24 HOURS TOPICAL PATCH TD SCH (10:28)
[2021-12-31] MEDS ORDERED: hydrOXYzine PAMOATE 25 MG CAPSULE (FP) PO PRN (10:29)
[2021-12-31 10:31] LABS: CREATININE 0.8 mg/dL (0.55-1.3)
[2021-12-31 10:33] LABS: BILIRUBIN,TOTAL 0.4 mg/dL (0.2-1); TOT PROT 7.4 g/dl (6.4-8.2)
[2021-12-31] MEDS: amLODIPine BESYLATE 5 MG TABLET (FP) PO SCH (10:54)
[2021-12-31] MEDS ORDERED: ARIPiprazole 10 MG TABLET PO ONE (12:18)
[2021-12-31] MEDS ORDERED: GABAPENTIN 300 MG CAPSULE PO ONE (12:18)
[2021-12-31] MEDS: FERROUS SO4 325 MG TABLET (FP) PO SCH ×2 (12:48→19:17)
[2021-12-31] MEDS: traZODone HCL 100 MG TABLET (FP) PO SCH (22:30)
[2021-12-31] MEDS: MELATONIN 5 MG TABLETS PO SCH (22:30)
[2021-12-31] MEDS: GABAPENTIN 300 MG CAPSULE PO SCH (22:30)
[2021-12-31] MEDS: THIAMINE HCL 100 MG TABLET (FP) PO SCH (22:30)
[2022-01-01] MEDS: cloNIDine HCL 0.1 MG TABLET PO PRN (06:24)
[2022-01-01] MEDS: METHOCARBAMOL 500 MG TABLET PO PRN ×2 (06:25→22:33)
[2022-01-01] MEDS: FERROUS SO4 325 MG TABLET (FP) PO SCH ×3 (07:04→17:58)
[2022-01-01] MEDS ORDERED: ARIPiprazole 10 MG TABLET PO SCH (10:00)
[2022-01-01] MEDS ORDERED: methaDONE HCL 10 MG TABLET (FOR DETOX USE ONLY) PO ONE (10:00)
[2022-01-01] MEDS: IBUPROFEN 400 MG TABLET (FP) PO PRN ×2 (10:45→17:58)
[2022-01-01] MEDS: amLODIPine BESYLATE 5 MG TABLET (FP) PO SCH (10:45)
[2022-01-01] MEDS: GABAPENTIN 300 MG CAPSULE PO SCH ×2 (10:45→22:32)
[2022-01-01] MEDS: PRENATAL VITAMINS W/ FOLIC ACID TABLET (FP) PO SCH (10:46)
[2022-01-01] MEDS: NICOTINE 14 MG/24 HOURS TOPICAL PATCH TD SCH (10:48)
[2022-01-01] MEDS: traZODone HCL 100 MG TABLET (FP) PO SCH (22:32)
[2022-01-01] MEDS: THIAMINE HCL 100 MG TABLET (FP) PO SCH (22:32)
[2022-01-01] MEDS: MELATONIN 5 MG TABLETS PO SCH (22:32)
[2022-01-02] MEDS: FERROUS SO4 325 MG TABLET (FP) PO SCH (07:11)
[2022-01-02 08:53] VITALS: BP 129/81; PULSE 82; TEMP 96.8
[2022-01-03] MEDS ORDERED: methaDONE HCL 10 MG TABLET (FOR DETOX USE ONLY) PO ONE (10:00)
== END 2022-01-02 10:50 | disposition left against medical advice (07) | DRG 770 ==
LOC: YASAS 18:17 → Y3N 12-31 00:09
PROVIDERS: ADMIT Allergy & Immunology; ATTEND Allergy & Immunology
PROC: HZ2ZZZZ Detoxification Services for Substance Abuse Treatment (ICD-10-PCS; principal; 2021-12-31)
DX: F11.23 Opioid dependence with withdrawal (principal); F10.20 Alcohol dependence, uncomplicated; F14.20 Cocaine dependence, uncomplicated; F16.20 Hallucinogen dependence, uncomplicated; F17.210 Nicotine dependence, cigarettes, uncomplicated; D50.9 Iron deficiency anemia, unspecified; I10 Essential (primary) hypertension; J45.909 Unspecified asthma, uncomplicated; R74.8 Abnormal levels of other serum enzymes; Z91.013 Allergy to seafood; Z91.010 Allergy to peanuts
CPT/HCPCS: 36415; 80053; 85027; 86780; 93005; 93010; C9803; J0735; U0003; U0005

== ENCOUNTER 2022-04-08 11:26 | Inpatient (IN) | payer OTHER ==
[2022-04-08] MEDS ORDERED: ONDANSETRON *ODT* 4 MG TABLET SL PRN (14:02)
[2022-04-08] MEDS ORDERED: LOPERAMIDE HCL 2 MG CAPSULE PO PRN (14:02)
[2022-04-08] MEDS ORDERED: METHOCARBAMOL 500 MG TABLET PO PRN (14:02)
[2022-04-08] MEDS ORDERED: NICOTINE 10 MG CARTRIDGE (INHALER) IH PRN (14:02)
[2022-04-08] MEDS ORDERED: MAGNESIUM CITRATE 300 ML BOTTLE PO PRN (14:02)
[2022-04-08] MEDS ORDERED: NALOXONE HCL (KLOXXADO) 8 MG SPRAY NS PRN (14:02)
[2022-04-08] MEDS ORDERED: BISMUTH SUBSALICYLATE 262 MG/15 ML BTL PO PRN (14:02)
[2022-04-08] MEDS ORDERED: MAGNESIUM HYDROX 2400MG/30ML ORAL SUSPENSION 30 ML CUP PO PRN (14:02)
[2022-04-08] MEDS ORDERED: ACETAMINOPHEN 325 MG TABLET (FP) PO PRN ×2 (14:02)
[2022-04-08] MEDS ORDERED: BENZOCAINE/MENTHOL (CHLORASEPTIC ) LOZENGE MM PRN (14:02)
[2022-04-08] MEDS ORDERED: methaDONE HCL 10 MG TABLET (FOR DETOX USE ONLY) PO ONE (14:02)
[2022-04-08] MEDS ORDERED: MAG HYDROX/AL HYDROX/SIMETH 30 ML UNIT-DOSE CUP PO PRN (14:02)
[2022-04-08] MEDS ORDERED: IBUPROFEN 400 MG TABLET (FP) PO PRN (14:02)
[2022-04-08] MEDS ORDERED: DICYCLOMINE HCL 10 MG CAPSULE PO PRN (14:02)
[2022-04-08] MEDS ORDERED: SENNOSIDES 8.6MG TABLET (FP) PO SCH (14:15)
[2022-04-08 14:48] VITALS: BMI 25.6
[2022-04-08] MEDS: LORazepam 1 MG TABLET PO PRN ×2 (16:02→20:45)
[2022-04-08] MEDS: cloNIDine HCL 0.1 MG TABLET PO PRN ×2 (16:02→20:46)
[2022-04-08 18:04] LABS: HEMATOCRIT 31.9 % (32.4-45.2); HEMOGLOBIN 9.6 GM/dL (10.7-15.3); MCHC 30.1 g/dl (32.0-36.0); MEAN CELL VOLUME 64.1 fl (80-96); MEAN PLT VOLUME 9.1 fl (7.5-11.1); PLATELET COUNT 335 10^3/uL (134-434); RBC 4.97 M/mm3 (3.60-5.2); RDW 18.9 % (11.6-15.6)
[2022-04-08 18:10] LABS: MCH 19.3 pg (25.7-33.7)
[2022-04-08 18:25] LABS: CALCIUM 9.7 mg/dL (8.5-10.1)
[2022-04-08 18:26] LABS: ALBUMIN 3.8 g/dl (3.4-5.0); BLOOD UREA NITROGEN 9.4 mg/dL (7-18)
[2022-04-08 18:29] LABS: CREATININE 0.7 mg/dL (0.55-1.3)
[2022-04-08 18:30] LABS: BILIRUBIN,TOTAL 0.3 mg/dL (0.2-1); TOT PROT 8.2 g/dl (6.4-8.2)
[2022-04-08] MEDS: hydrOXYzine PAMOATE 25 MG CAPSULE (FP) PO SCH ×2 (18:54→23:06)
[2022-04-08] MEDS: FERROUS SO4 325 MG TABLET (FP) PO SCH ×2 (18:54→23:10)
[2022-04-08] MEDS: PRENATAL VITAMINS W/ FOLIC ACID TABLET (FP) PO SCH (18:55)
[2022-04-08] MEDS: LORazepam 2 MG TABLET PO SCH ×2 (18:57→23:10)
[2022-04-08] MEDS: NICOTINE 14 MG/24 HOURS TOPICAL PATCH TD SCH (19:32)
[2022-04-08] MEDS: DOCUSATE SODIUM 100 MG CAPSULE (FP) PO SCH (23:06)
[2022-04-08] MEDS: THIAMINE HCL 100 MG TABLET (FP) PO SCH (23:07)
[2022-04-08] MEDS: QUEtiapine FUMARATE 200 MG TABLET PO SCH (23:07)
[2022-04-08] MEDS: MELATONIN 5 MG TABLETS PO SCH (23:10)
[2022-04-09] MEDS: LORazepam 2 MG TABLET PO SCH ×4 (06:43→22:35)
[2022-04-09] MEDS: hydrOXYzine PAMOATE 25 MG CAPSULE (FP) PO SCH ×5 (06:43→22:35)
[2022-04-09] MEDS: FERROUS SO4 325 MG TABLET (FP) PO SCH ×3 (06:46→22:34)
[2022-04-09] MEDS ORDERED: methaDONE HCL 10 MG TABLET (FOR DETOX USE ONLY) ONE (09:53)
[2022-04-09] MEDS: GABAPENTIN 300 MG CAPSULE PO SCH ×2 (10:47→22:35)
[2022-04-09] MEDS: NICOTINE 14 MG/24 HOURS TOPICAL PATCH TD SCH (10:48)
[2022-04-09] MEDS: PRENATAL VITAMINS W/ FOLIC ACID TABLET (FP) PO SCH (10:48)
[2022-04-09] MEDS: SENNOSIDES 8.6MG TABLET (FP) PO SCH (15:40)
[2022-04-09] MEDS: cloNIDine HCL 0.1 MG TABLET PO PRN ×2 (17:25→22:34)
[2022-04-09] MEDS ORDERED: traZODone HCL 50 MG TABLET (FP) PO SCH (22:00)
[2022-04-09] MEDS: MELATONIN 5 MG TABLETS PO SCH (22:34)
[2022-04-09] MEDS: THIAMINE HCL 100 MG TABLET (FP) PO SCH (22:34)
[2022-04-09] MEDS: QUEtiapine FUMARATE 200 MG TABLET PO SCH (22:35)
[2022-04-09] MEDS: DOCUSATE SODIUM 100 MG CAPSULE (FP) PO SCH (22:35)
[2022-04-10] MEDS: LORazepam 1 MG TABLET PO SCH ×2 (06:10→10:17)
[2022-04-10] MEDS: hydrOXYzine PAMOATE 25 MG CAPSULE (FP) PO SCH ×3 (06:11→14:00)
[2022-04-10] MEDS: FERROUS SO4 325 MG TABLET (FP) PO SCH ×2 (07:35→14:00)
[2022-04-10 08:52] VITALS: BP 150/93; PULSE 81; TEMP 98.2
[2022-04-10] MEDS ORDERED: methaDONE HCL 10 MG TABLET (FOR DETOX USE ONLY) PO ONE (10:00)
[2022-04-10] MEDS: PRENATAL VITAMINS W/ FOLIC ACID TABLET (FP) PO SCH (10:17)
[2022-04-10] MEDS: GABAPENTIN 300 MG CAPSULE PO SCH (10:17)
[2022-04-10] MEDS: SENNOSIDES 8.6MG TABLET (FP) PO SCH (10:20)
[2022-04-10] MEDS: NICOTINE 14 MG/24 HOURS TOPICAL PATCH TD SCH (10:20)
[2022-04-10] MEDS: cloNIDine HCL 0.1 MG TABLET PO PRN (14:00)
[2022-04-10] MEDS: LORazepam 1 MG TABLET PO PRN (14:00)
[2022-04-11] MEDS ORDERED: LORazepam 0.5 MG TABLET PO PRN
[2022-04-11] MEDS ORDERED: LORazepam 0.5 MG TABLET PO SCH (05:00)
[2022-04-12] MEDS ORDERED: LORazepam 0.5 MG TABLET PO ONE (05:00)
[2022-04-12] MEDS ORDERED: methaDONE HCL 10 MG TABLET (FOR DETOX USE ONLY) PO ONE (10:00)
== END 2022-04-10 04:35 | disposition home or self-care (01) | DRG 773 ==
LOC: YASAS 11:26 → Y3N 15:59
PROVIDERS: ADMIT Allergy & Immunology; ATTEND Surgery
PROC: HZ2ZZZZ Detoxification Services for Substance Abuse Treatment (ICD-10-PCS; principal; 2022-04-08)
DX: F11.23 Opioid dependence with withdrawal (principal); F10.20 Alcohol dependence, uncomplicated; F14.20 Cocaine dependence, uncomplicated; F12.20 Cannabis dependence, uncomplicated; F16.20 Hallucinogen dependence, uncomplicated; F17.210 Nicotine dependence, cigarettes, uncomplicated; F31.9 Bipolar disorder, unspecified; F19.24 Other psychoactive substance dependence with psychoactive substance-induced mood disorder; D64.9 Anemia, unspecified; I10 Essential (primary) hypertension; G47.00 Insomnia, unspecified; J45.909 Unspecified asthma, uncomplicated; Z28.310 Unvaccinated for COVID-19; Z91.013 Allergy to seafood; Z91.19 Patient's noncompliance with other medical treatment and regimen
CPT/HCPCS: 36415; 80053; 81025; 85027; 86780; C9803-CS; J0735; U0003; U0005